=== PATIENT | male | born 1970 | race Caucasian/White ===

== ENCOUNTER 2018-06-13 19:28 | Inpatient (IN) | payer MEDICAID ==
[~2018-06-13] VITALS: Ht 175.3 cm; Wt 80.1 kg
[~2018-06-13 19:28] MED LIST: RISP2 PO; SERT100T12 PO
[2018-06-13] MEDS ORDERED: ZOLPIDEM TARTRATE 10 MG TABLET PO PRN (20:00)
[2018-06-13] MEDS ORDERED: LORazepam 2 MG TABLET PO PRN (20:00)
[2018-06-13] MEDS ORDERED: HALOPERIDOL 5 MG TABLET PO PRN (20:00)
[2018-06-13 20:29] VITALS: BP 118/69
[2018-06-13] MEDS ORDERED: ACETAMINOPHEN 325 MG TABLET PO PRN (21:00)
[2018-06-13] MEDS ORDERED: DOCUSATE SODIUM 100 MG CAPSULE PO PRN (21:00)
[2018-06-13] MEDS ORDERED: MAG HYDROX/AL HYDROX/SIMETH ES 30 ML SUSPENSION UDCUP PO PRN (21:00)
[2018-06-13] MEDS ORDERED: NICOTINE 14 MG/24 HOUR PATCH TD PRN (21:00)
[2018-06-13] MEDS ORDERED: CloNIDine HCL 0.1 MG TABLET PO PRN (21:00)
[2018-06-13] MEDS ORDERED: MAGNESIUM HYDROXIDE SUSPENSION 30 ML UDCUP PO PRN (21:00)
[2018-06-13] MEDS ORDERED: LOPERAMIDE HCL 2 MG CAPSULE PO PRN (21:00)
[2018-06-13] MEDS ORDERED: IBUPROFEN 400 MG TABLET PO PRN (21:00)
[2018-06-13] MEDS ORDERED: ONDANSETRON HCL 4 MG TABLET PO PRN (21:00)
[2018-06-13] MEDS ORDERED: PETROLATUM,WHITE 28 GM JELLY TP PRN (21:00)
[2018-06-13] MEDS ORDERED: PNEUMOCOCCAL VACCINE POLYVALENT 0.5 ML VIAL [PPSV23] IM ONE (21:00)
[2018-06-13] MEDS ORDERED: ALBUTEROL SULFATE HFA 90 MCG/PUFF 8 GM INHALER IH PRN (21:00)
[2018-06-13 21:04] VITALS: BP 122/77
[2018-06-14 00:14] VITALS: BP 118/72
[2018-06-14 08:29] LABS: BASOPHILS % (AUTO) 0.4 % (0.0-2.0); EOSINOPHILS % (AUTO) 4.6 % (1.0-6.0); HEMOGLOBIN 14.3 g/dL (13.5-17.5); LYMPHOCYTES # (AUTO) 1.9 K/uL (1.0-4.8); LYMPHOCYTES % (AUTO) 30.4 % (22.0-44.0); MEAN CORPUSCULAR HEMOGLOBIN 27.7 pg (26.0-34.0); MEAN CORPUSCULAR HGB CONC 32.6 G/dL (31.0-37.0); MEAN CORPUSCULAR VOLUME 85 fL (80-100); MONOCYTES # (AUTO) 0.4 K/uL (0.1-1.0); MONOCYTES % (AUTO) 6.6 % (2.0-9.0); NEUTROPHILS # (AUTO) 3.6 K/uL (1.8-7.7); PLATELET COUNT (AUTO) 254 K/uL (150-450); RED BLOOD CELL COUNT(AUTO) 5.17 MIL/uL (4.50-5.90); RED CELL DISTRIBUTION WIDTH 14.1 % (11.5-14.5)
[2018-06-14 08:55] LABS: ALANINE AMINOTRANSFERASE 43 U/L (12-78); ALBUMIN 3.7 g/dL (3.4-5.0); ALKALINE PHOSPHATASE 73 U/L (46-116); ANION GAP 5 mmol/L (8-16); ASPARTATE AMINOTRANSFERASE 16 U/L (15-37); BILIRUBIN,TOTAL 1.1 mg/dL (0.1-1.0); CALCIUM, TOTAL 9.2 mg/dL (8.8-10.5); CARBON DIOXIDE 31 mmol/L (22-29); CHLORIDE 104 mmol/L (98-107); CHOL/HDL RATIO 3.8 (4.2-7.3); CHOLESTEROL 255 mg/dL (131-200); CREATININE 0.97 mg/dL (0.60-1.30); FREE T4 (FREE THYROXINE) 0.72 ng/dL (0.76-1.46); GLOMERULAR FILTR. RATE CALC > 60 mL/min (>60); GLUCOSE,RANDOM 79 mg/dL (70-110); HDL CHOLESTEROL 68 mg/dL (40-60); LDL CHOL (CALC.) 164 mg/dL (0-130); POTASSIUM 4.4 mmol/L (3.5-5.1); SODIUM SERUM 140 mmol/L (136-145); THYROID STIMULATING HORMONE 1.74 uIU/mL (0.36-3.74); TOTAL PROTEIN, SERUM 6.9 g/dL (6.4-8.2); TRIGLYCERIDES 113 mg/dL (15-150); UREA NITROGEN, BLOOD 17 mg/dL (7-18)
[2018-06-14 09:00] VITALS: BP 134/88
[2018-06-14] MEDS: SERTRALINE HCL 100 MG TABLET PO SCH ×2 (09:00→12:58)
[2018-06-14 09:04] LABS: HEMOGLOBIN A1C 5.3 % (4.5-6.2)
[2018-06-14 16:31] VITALS: BP 118/76
[2018-06-14] MEDS: RisperiDONE 2 MG TABLET PO SCH (20:56)
[2018-06-15 06:00] VITALS: BP 104/61
[2018-06-15] MEDS: LEVOTHYROXINE SODIUM 25 MCG TABLET PO SCH (06:45)
[2018-06-15 08:30] VITALS: BP 104/67
[2018-06-15 16:15] VITALS: BP 116/67
[2018-06-15] MEDS: RisperiDONE 2 MG TABLET PO SCH (20:16)
[2018-06-16 00:08] VITALS: BP 119/67
[2018-06-16] MEDS: GuaiFENesin/D-METHORPHAN [SUGAR-FREE] 200-20MG/10 ML SYRUP UDCUP PO PRN ×2 (02:50→20:58)
[2018-06-16] MEDS: LEVOTHYROXINE SODIUM 25 MCG TABLET PO SCH (07:01)
[2018-06-16] MEDS: SERTRALINE HCL 100 MG TABLET PO SCH (08:11)
[2018-06-16 08:18] VITALS: BP 124/62
[2018-06-16 16:06] VITALS: BP 115/63
[2018-06-16] MEDS: RisperiDONE 2 MG TABLET PO SCH (20:33)
[2018-06-17 01:00] VITALS: BP 109/62
[2018-06-17] MEDS: LEVOTHYROXINE SODIUM 25 MCG TABLET PO SCH (06:35)
[2018-06-17 08:20] VITALS: BP 108/65
[2018-06-17] MEDS: SERTRALINE HCL 100 MG TABLET PO SCH (08:54)
[2018-06-17 16:16] VITALS: BP 114/68
[2018-06-17] MEDS: RisperiDONE 2 MG TABLET PO SCH (20:32)
[2018-06-17] MEDS: GuaiFENesin/D-METHORPHAN [SUGAR-FREE] 200-20MG/10 ML SYRUP UDCUP PO PRN (20:51)
[2018-06-18 00:45] VITALS: BP 109/69
[2018-06-18] MEDS: LEVOTHYROXINE SODIUM 25 MCG TABLET PO SCH (06:36)
[2018-06-18] MEDS: SERTRALINE HCL 100 MG TABLET PO SCH (08:03)
[2018-06-18 08:15] VITALS: BP 106/64
[2018-06-18 16:00] VITALS: BP 108/60
[2018-06-18] MEDS: RisperiDONE 2 MG TABLET PO SCH (20:37)
[2018-06-19 06:20] VITALS: BP 129/87
[2018-06-19] MEDS: LEVOTHYROXINE SODIUM 25 MCG TABLET PO SCH (06:36)
[2018-06-19] MEDS: SERTRALINE HCL 100 MG TABLET PO SCH (08:44)
[2018-06-19 08:57] VITALS: BP 105/66
[2018-06-19 16:18] VITALS: BP 111/71
[2018-06-19] MEDS: RisperiDONE 2 MG TABLET PO SCH (20:11)
[2018-06-20] MEDS: GuaiFENesin/D-METHORPHAN [SUGAR-FREE] 200-20MG/10 ML SYRUP UDCUP PO PRN ×2 (00:29→22:15)
[2018-06-20] MEDS: LEVOTHYROXINE SODIUM 25 MCG TABLET PO SCH (05:47)
[2018-06-20 06:39] VITALS: BP 108/72
[2018-06-20 08:26] VITALS: BP 110/57
[2018-06-20 11:44] VITALS: BP 112/65
[2018-06-20] MEDS: SERTRALINE HCL 100 MG TABLET PO SCH (12:17)
[2018-06-20 16:27] VITALS: BP 110/71
[2018-06-20] MEDS: RisperiDONE 2 MG TABLET PO SCH (20:33)
[2018-06-21 00:25] VITALS: BP 112/68
[2018-06-21] MEDS: LEVOTHYROXINE SODIUM 25 MCG TABLET PO SCH (06:46)
[2018-06-21 08:19] VITALS: BP 115/69
[2018-06-21] MEDS: AZITHROMYCIN 250 MG TABLET PO SCH (08:57)
[2018-06-21] MEDS: SERTRALINE HCL 100 MG TABLET PO SCH (08:57)
[2018-06-21 16:43] VITALS: BP 111/65
[2018-06-21] MEDS: RisperiDONE 2 MG TABLET PO SCH (20:29)
[2018-06-22 00:23] VITALS: BP 110/72
[2018-06-22] MEDS: LEVOTHYROXINE SODIUM 25 MCG TABLET PO SCH (06:42)
[2018-06-22 08:24] VITALS: BP 107/63
[2018-06-22] MEDS: SERTRALINE HCL 100 MG TABLET PO SCH (08:35)
[2018-06-22] MEDS: AZITHROMYCIN 250 MG TABLET PO SCH (08:36)
[2018-06-22 16:40] VITALS: BP 114/75
[2018-06-22] MEDS: RisperiDONE 2 MG TABLET PO SCH (20:45)
[2018-06-23] MEDS: LEVOTHYROXINE SODIUM 25 MCG TABLET PO SCH (06:24)
[2018-06-23 07:11] VITALS: BP 110/68
[2018-06-23 09:33] VITALS: BP 110/62
[2018-06-23] MEDS: AZITHROMYCIN 250 MG TABLET PO SCH (09:47)
[2018-06-23] MEDS: SERTRALINE HCL 100 MG TABLET PO SCH (09:47)
[2018-06-23] MEDS: RisperiDONE 1 MG TABLET PO SCH (11:15)
[2018-06-23 16:27] VITALS: BP 112/54
[2018-06-23] MEDS: RisperiDONE 2 MG TABLET PO SCH (20:15)
[2018-06-24] MEDS: LEVOTHYROXINE SODIUM 25 MCG TABLET PO SCH (06:27)
[2018-06-24 09:14] VITALS: BP 102/60
[2018-06-24] MEDS: RisperiDONE 1 MG TABLET PO SCH (09:45)
[2018-06-24] MEDS: SERTRALINE HCL 100 MG TABLET PO SCH (09:46)
[2018-06-24] MEDS: AZITHROMYCIN 250 MG TABLET PO SCH (09:46)
[2018-06-24 17:44] VITALS: BP 113/71
[2018-06-24] MEDS: RisperiDONE 2 MG TABLET PO SCH (20:10)
[2018-06-25 03:12] VITALS: BP 104/58
[2018-06-25] MEDS: LEVOTHYROXINE SODIUM 25 MCG TABLET PO SCH (06:57)
[2018-06-25 08:00] VITALS: BP 100/67
[2018-06-25] MEDS: AZITHROMYCIN 250 MG TABLET PO SCH (09:38)
[2018-06-25] MEDS: SERTRALINE HCL 100 MG TABLET PO SCH (09:38)
[2018-06-25] MEDS: RisperiDONE 1 MG TABLET PO SCH (09:38)
[2018-06-25 16:13] VITALS: BP 122/72
[2018-06-25] MEDS: RisperiDONE 2 MG TABLET PO SCH (20:36)
[2018-06-26 06:28] VITALS: BP 116/67
[2018-06-26] MEDS: LEVOTHYROXINE SODIUM 25 MCG TABLET PO SCH (07:01)
[2018-06-26] MEDS: RisperiDONE 1 MG TABLET PO SCH (08:31)
[2018-06-26] MEDS: SERTRALINE HCL 100 MG TABLET PO SCH (08:31)
[2018-06-26 08:53] VITALS: BP 103/61
[2018-06-26 16:19] VITALS: BP 114/72
[2018-06-26] MEDS: RisperiDONE 2 MG TABLET PO SCH (21:11)
[2018-06-27 01:30] VITALS: BP 113/68
[2018-06-27] MEDS: LEVOTHYROXINE SODIUM 25 MCG TABLET PO SCH (06:54)
[2018-06-27 08:00] VITALS: BP 104/60
[2018-06-27] MEDS: RisperiDONE 1 MG TABLET PO SCH (08:50)
[2018-06-27] MEDS: SERTRALINE HCL 100 MG TABLET PO SCH (08:51)
[2018-06-27 16:31] VITALS: BP 111/66
[2018-06-27] MEDS: RisperiDONE 2 MG TABLET PO SCH (20:34)
[2018-06-28 00:42] VITALS: BP 112/69
[2018-06-28] MEDS: LEVOTHYROXINE SODIUM 25 MCG TABLET PO SCH (06:59)
[2018-06-28 08:29] VITALS: BP 104/60
[2018-06-28] MEDS: SERTRALINE HCL 100 MG TABLET PO SCH (08:29)
[2018-06-28] MEDS: RisperiDONE 1 MG TABLET PO SCH (08:29)
[2018-06-28 16:17] VITALS: BP 115/71
[2018-06-28] MEDS: RisperiDONE 2 MG TABLET PO SCH (20:18)
[2018-06-29 03:27] VITALS: BP 91/58
[2018-06-29] MEDS: LEVOTHYROXINE SODIUM 25 MCG TABLET PO SCH (07:20)
[2018-06-29 08:10] VITALS: BP 110/67
[2018-06-29] MEDS: RisperiDONE 1 MG TABLET PO SCH (09:06)
[2018-06-29] MEDS: SERTRALINE HCL 100 MG TABLET PO SCH (09:06)
[2018-06-29 16:40] VITALS: BP 119/73
[2018-06-29] MEDS: RisperiDONE 2 MG TABLET PO SCH (20:05)
[2018-06-30 00:07] VITALS: BP 107/64
[2018-06-30] MEDS: LEVOTHYROXINE SODIUM 25 MCG TABLET PO SCH (06:51)
[2018-06-30 08:09] VITALS: BP 105/59
[2018-06-30] MEDS: RisperiDONE 1 MG TABLET PO SCH (08:44)
[2018-06-30] MEDS: SERTRALINE HCL 100 MG TABLET PO SCH (08:44)
[2018-06-30 16:11] VITALS: BP 105/63
[2018-06-30] MEDS: RisperiDONE 2 MG TABLET PO SCH (20:07)
[2018-07-01 03:08] VITALS: BP 115/68
[2018-07-01] MEDS: LEVOTHYROXINE SODIUM 25 MCG TABLET PO SCH (06:51)
[2018-07-01 08:00] VITALS: BP 113/67
[2018-07-01] MEDS: SERTRALINE HCL 100 MG TABLET PO SCH (08:22)
[2018-07-01] MEDS: RisperiDONE 2 MG TABLET PO SCH ×2 (08:22→20:18)
[2018-07-01 16:11] VITALS: BP 113/67
[2018-07-02 01:13] VITALS: BP 113/62
[2018-07-02] MEDS: LEVOTHYROXINE SODIUM 25 MCG TABLET PO SCH (06:56)
[2018-07-02] MEDS: SERTRALINE HCL 100 MG TABLET PO SCH (08:29)
[2018-07-02] MEDS: RisperiDONE 2 MG TABLET PO SCH (08:29)
[2018-07-02 08:39] VITALS: BP 108/82
[2018-07-02] MEDS ORDERED: RISP2 PO ×2 (11:50→12:36)
[2018-07-02] MEDS ORDERED: SERT100T12 PO ×2 (11:50→12:36)
[2018-07-02] MEDS ORDERED: LEVO25TA9 PO (12:36)
== END 2018-07-02 13:00 | disposition home or self-care (01) | DRG 751 ==
LOC: B2S 19:58
DX: F33.3 Major depressive disorder, recurrent, severe with psychotic symptoms (principal); R45.851 Suicidal ideations; E03.9 Hypothyroidism, unspecified; E78.5 Hyperlipidemia, unspecified; F10.10 Alcohol abuse, uncomplicated; G89.29 Other chronic pain; M25.561 Pain in right knee; M25.562 Pain in left knee; M54.9 Dorsalgia, unspecified; F99 Mental disorder, not otherwise specified; F19.10 Other psychoactive substance abuse, uncomplicated; Z59.0 Homelessness; Z79.899 Other long term (current) drug therapy
CPT/HCPCS: 83036; 84439; 84443; 87070; 87081; 87205

== ENCOUNTER 2018-07-17 11:46 | Inpatient (IN) | payer MEDICAID ==
[~2018-07-17] VITALS: Ht 175.3 cm; Wt 83.3 kg
[~2018-07-17 11:46] MED LIST changes: +LEVO25TA9 PO
[2018-07-17 14:23] LABS: AMPHET/METH SCREEN,URINE NEGATIVE (NEGATIVE); BARBITURATE SCREEN, URINE NEGATIVE (NEGATIVE); BENZODIAZEPINES SCREEN,URINE NEGATIVE (NEGATIVE); CANNABINOID SCREEN,URINE NEGATIVE (NEGATIVE); COCAINE SCREEN,URINE NEGATIVE (NEGATIVE); METHADONE SCREEN, URINE NEGATIVE (NEGATIVE); OPIATE SCREEN,URINE NEGATIVE (NEGATIVE); PHENCYCLIDINE SCREEN,URINE NEGATIVE (NEGATIVE)
[2018-07-17 14:24] LABS: ANION GAP 9 mmol/L (8-16); CARBON DIOXIDE 27 mmol/L (22-29); CHLORIDE 103 mmol/L (98-107); CREATININE 0.94 mg/dL (0.60-1.30); GLOMERULAR FILTR. RATE CALC > 60 mL/min (>60); GLUCOSE,RANDOM 95 mg/dL (70-110); POTASSIUM 4.3 mmol/L (3.5-5.1); SODIUM SERUM 139 mmol/L (136-145); UREA NITROGEN, BLOOD 23 mg/dL (7-18)
[2018-07-17 14:26] LABS: BASOPHILS % (AUTO) 0.6 % (0.0-2.0); EOSINOPHILS % (AUTO) 6.4 % (1.0-6.0); HEMATOCRIT 41.9 % (41-53); HEMOGLOBIN 13.8 g/dL (13.5-17.5); LYMPHOCYTES # (AUTO) 1.4 K/uL (1.0-4.8); LYMPHOCYTES % (AUTO) 19.8 % (22.0-44.0); MEAN CORPUSCULAR HEMOGLOBIN 27.6 pg (26.0-34.0); MEAN CORPUSCULAR HGB CONC 32.8 G/dL (31.0-37.0); MEAN CORPUSCULAR VOLUME 84 fL (80-100); MONOCYTES # (AUTO) 0.5 K/uL (0.1-1.0); MONOCYTES % (AUTO) 7.2 % (2.0-9.0); NEUTROPHILS # (AUTO) 4.7 K/uL (1.8-7.7); PLATELET COUNT (AUTO) 216 K/uL (150-450); RED BLOOD CELL COUNT(AUTO) 4.98 MIL/uL (4.50-5.90); RED CELL DISTRIBUTION WIDTH 13.5 % (11.5-14.5)
[2018-07-17 14:30] LABS: ALANINE AMINOTRANSFERASE 41 U/L (12-78); ALBUMIN 3.7 g/dL (3.4-5.0); ALKALINE PHOSPHATASE 67 U/L (46-116); ASPARTATE AMINOTRANSFERASE 24 U/L (15-37); BILIRUBIN,TOTAL 0.5 mg/dL (0.1-1.0); TOTAL PROTEIN, SERUM 7.4 g/dL (6.4-8.2)
[2018-07-17] MEDS ORDERED: HALOPERIDOL 5 MG TABLET PO PRN (15:00)
[2018-07-17] MEDS ORDERED: LORazepam 2 MG TABLET PO PRN (15:00)
[2018-07-17] MEDS ORDERED: ZOLPIDEM TARTRATE 10 MG TABLET PO PRN (15:00)
[2018-07-17 18:20] VITALS: BP 124/73
[2018-07-17] MEDS ORDERED: GuaiFENesin/D-METHORPHAN [SUGAR-FREE] 200-20MG/10 ML SYRUP UDCUP PO PRN (19:00)
[2018-07-17] MEDS ORDERED: IBUPROFEN 400 MG TABLET PO PRN (19:00)
[2018-07-17] MEDS ORDERED: NICOTINE 14 MG/24 HOUR PATCH TD PRN (19:00)
[2018-07-17] MEDS ORDERED: ACETAMINOPHEN 325 MG TABLET PO PRN (19:00)
[2018-07-17] MEDS ORDERED: CloNIDine HCL 0.1 MG TABLET PO PRN (19:00)
[2018-07-17] MEDS ORDERED: ALBUTEROL SULFATE HFA 90 MCG/PUFF 8 GM INHALER IH PRN (19:00)
[2018-07-17] MEDS ORDERED: MAGNESIUM HYDROXIDE SUSPENSION 30 ML UDCUP PO PRN (19:00)
[2018-07-17] MEDS ORDERED: MAG HYDROX/AL HYDROX/SIMETH ES 30 ML SUSPENSION UDCUP PO PRN (19:00)
[2018-07-17] MEDS ORDERED: ONDANSETRON HCL 4 MG TABLET PO PRN (19:00)
[2018-07-17] MEDS ORDERED: DOCUSATE SODIUM 100 MG CAPSULE PO PRN (19:00)
[2018-07-17] MEDS ORDERED: LOPERAMIDE HCL 2 MG CAPSULE PO PRN (19:00)
[2018-07-17] MEDS ORDERED: PETROLATUM,WHITE 28 GM JELLY TP PRN (19:00)
[2018-07-18 00:06] VITALS: BP 120/67
[2018-07-18] MEDS: LEVOTHYROXINE SODIUM 25 MCG TABLET PO SCH (08:23)
[2018-07-18 08:27] LABS: BASOPHILS % (AUTO) 0.6 % (0.0-2.0); EOSINOPHILS % (AUTO) 9.2 % (1.0-6.0); HEMATOCRIT 44.7 % (41-53); HEMOGLOBIN 14.4 g/dL (13.5-17.5); LYMPHOCYTES # (AUTO) 1.7 K/uL (1.0-4.8); LYMPHOCYTES % (AUTO) 27.3 % (22.0-44.0); MEAN CORPUSCULAR HEMOGLOBIN 27.2 pg (26.0-34.0); MEAN CORPUSCULAR HGB CONC 32.2 G/dL (31.0-37.0); MEAN CORPUSCULAR VOLUME 85 fL (80-100); MONOCYTES # (AUTO) 0.5 K/uL (0.1-1.0); MONOCYTES % (AUTO) 8.4 % (2.0-9.0); NEUTROPHILS # (AUTO) 3.4 K/uL (1.8-7.7); NEUTROPHILS % (AUTO) 54.5 % (40.0-70.0); PLATELET COUNT (AUTO) 203 K/uL (150-450); RED BLOOD CELL COUNT(AUTO) 5.29 MIL/uL (4.50-5.90); RED CELL DISTRIBUTION WIDTH 13.8 % (11.5-14.5)
[2018-07-18 08:34] VITALS: BP 118/68
[2018-07-18 09:03] LABS: ALANINE AMINOTRANSFERASE 39 U/L (12-78); ALBUMIN 3.7 g/dL (3.4-5.0); ALKALINE PHOSPHATASE 67 U/L (46-116); ANION GAP 6 mmol/L (8-16); ASPARTATE AMINOTRANSFERASE 21 U/L (15-37); BILIRUBIN,TOTAL 0.7 mg/dL (0.1-1.0); CALCIUM, TOTAL 9.4 mg/dL (8.8-10.5); CARBON DIOXIDE 33 mmol/L (22-29); CHLORIDE 103 mmol/L (98-107); CHOL/HDL RATIO 4.2 (4.2-7.3); CHOLESTEROL 254 mg/dL (131-200); CREATININE 1.17 mg/dL (0.60-1.30); GLOMERULAR FILTR. RATE CALC > 60 mL/min (>60); GLUCOSE,RANDOM 74 mg/dL (70-110); HDL CHOLESTEROL 60 mg/dL (40-60); LDL CHOL (CALC.) 164 mg/dL (0-130); SODIUM SERUM 142 mmol/L (136-145); THYROID STIMULATING HORMONE 1.29 uIU/mL (0.36-3.74); TOTAL PROTEIN, SERUM 7.1 g/dL (6.4-8.2); TRIGLYCERIDES 151 mg/dL (15-150); UREA NITROGEN, BLOOD 21 mg/dL (7-18)
[2018-07-18 09:22] LABS: HEMOGLOBIN A1C 5.7 % (4.5-6.2)
[2018-07-18] MEDS: RisperiDONE 2 MG TABLET PO SCH ×2 (14:21→20:39)
[2018-07-18] MEDS: SERTRALINE HCL 100 MG TABLET PO SCH (14:23)
[2018-07-18 16:41] VITALS: BP 100/65
[2018-07-19 05:51] VITALS: BP 132/61
[2018-07-19] MEDS: LEVOTHYROXINE SODIUM 25 MCG TABLET PO SCH (07:16)
[2018-07-19 08:00] VITALS: BP 107/56
[2018-07-19] MEDS: SERTRALINE HCL 100 MG TABLET PO SCH (08:38)
[2018-07-19] MEDS: RisperiDONE 2 MG TABLET PO SCH ×2 (08:38→20:29)
[2018-07-19 16:18] VITALS: BP 123/79
[2018-07-20 00:19] VITALS: BP 105/62
[2018-07-20] MEDS: LEVOTHYROXINE SODIUM 25 MCG TABLET PO SCH (06:41)
[2018-07-20 09:02] VITALS: BP 114/65
[2018-07-20] MEDS: RisperiDONE 2 MG TABLET PO SCH ×2 (09:15→20:56)
[2018-07-20] MEDS: SERTRALINE HCL 100 MG TABLET PO SCH (09:15)
[2018-07-20 16:24] VITALS: BP 119/73
[2018-07-21 07:07] VITALS: BP 115/76
[2018-07-21] MEDS: LEVOTHYROXINE SODIUM 25 MCG TABLET PO SCH (07:30)
[2018-07-21 08:00] VITALS: BP 111/69
[2018-07-21] MEDS: SERTRALINE HCL 100 MG TABLET PO SCH (09:21)
[2018-07-21] MEDS: RisperiDONE 2 MG TABLET PO SCH ×2 (09:21→20:40)
[2018-07-21 16:30] VITALS: BP 111/70
[2018-07-22 04:57] VITALS: BP 99/64
[2018-07-22] MEDS: LEVOTHYROXINE SODIUM 25 MCG TABLET PO SCH (06:54)
[2018-07-22 08:50] VITALS: BP 121/75
[2018-07-22] MEDS: SERTRALINE HCL 100 MG TABLET PO SCH (08:50)
[2018-07-22] MEDS: RisperiDONE 2 MG TABLET PO SCH ×2 (08:50→20:25)
[2018-07-22 16:12] VITALS: BP 118/72
[2018-07-23 00:14] VITALS: BP 112/76
[2018-07-23] MEDS: LEVOTHYROXINE SODIUM 25 MCG TABLET PO SCH (06:50)
[2018-07-23 08:31] LABS: AMPHET/METH SCREEN,URINE NEGATIVE (NEGATIVE); BARBITURATE SCREEN, URINE NEGATIVE (NEGATIVE); BENZODIAZEPINES SCREEN,URINE NEGATIVE (NEGATIVE); COCAINE SCREEN,URINE NEGATIVE (NEGATIVE); METHADONE SCREEN, URINE NEGATIVE (NEGATIVE); OPIATE SCREEN,URINE NEGATIVE (NEGATIVE)
[2018-07-23] MEDS: RisperiDONE 2 MG TABLET PO SCH ×2 (08:55→20:08)
[2018-07-23] MEDS: SERTRALINE HCL 100 MG TABLET PO SCH (08:55)
[2018-07-23 09:38] VITALS: BP 111/60
[2018-07-23 09:45] LABS: APPEARANCE,URINE CLEAR (CLEAR); BILIRUBIN,URINE NEGATIVE (NEGATIVE); GLUCOSE, URINE (UA) NEGATIVE (NEGATIVE); KETONES,URINE NEGATIVE (NEGATIVE); LEUKOCYTE ESTERASE ,URINE NEGATIVE (NEGATIVE); NITRATE,URINE NEGATIVE (NEGATIVE); OCCULT BLOOD,URINE NEGATIVE (NEGATIVE); PH,URINE 7.5 (5.0-8.0); PROTEIN,URINE NEGATIVE (NEGATIVE); UROBILINOGEN,URINE 0.2 mg/dL (<=1.0)
[2018-07-23 09:47] LABS: CANNABINOID SCREEN,URINE NEGATIVE (NEGATIVE)
[2018-07-23 09:50] LABS: PHENCYCLIDINE SCREEN,URINE NEGATIVE (NEGATIVE)
[2018-07-23 16:49] VITALS: BP 122/85
[2018-07-24 00:30] VITALS: BP 107/72
[2018-07-24] MEDS: LEVOTHYROXINE SODIUM 25 MCG TABLET PO SCH (06:42)
[2018-07-24] MEDS: SERTRALINE HCL 100 MG TABLET PO SCH (09:13)
[2018-07-24] MEDS: RisperiDONE 2 MG TABLET PO SCH ×2 (09:14→21:25)
[2018-07-24 09:21] VITALS: BP 117/70
[2018-07-24 16:19] VITALS: BP 124/74
[2018-07-25 05:28] VITALS: BP 122/72
[2018-07-25] MEDS: LEVOTHYROXINE SODIUM 25 MCG TABLET PO SCH (06:42)
[2018-07-25 08:00] VITALS: BP 104/66
[2018-07-25] MEDS: SERTRALINE HCL 100 MG TABLET PO SCH (09:07)
[2018-07-25] MEDS: RisperiDONE 2 MG TABLET PO SCH ×2 (09:07→20:43)
[2018-07-25 16:08] VITALS: BP 109/72
[2018-07-26 06:18] VITALS: BP 111/67
[2018-07-26] MEDS: LEVOTHYROXINE SODIUM 25 MCG TABLET PO SCH (06:35)
[2018-07-26 08:21] VITALS: BP 118/69
[2018-07-26] MEDS: SERTRALINE HCL 100 MG TABLET PO SCH (09:02)
[2018-07-26] MEDS: RisperiDONE 2 MG TABLET PO SCH ×2 (09:02→20:29)
[2018-07-26 16:14] VITALS: BP 118/62
[2018-07-27 01:40] VITALS: BP 112/68
[2018-07-27] MEDS: LEVOTHYROXINE SODIUM 25 MCG TABLET PO SCH (07:14)
[2018-07-27 08:00] VITALS: BP 115/71
[2018-07-27] MEDS: SERTRALINE HCL 100 MG TABLET PO SCH (08:48)
[2018-07-27] MEDS: RisperiDONE 2 MG TABLET PO SCH (08:48)
[2018-07-27] MEDS ORDERED: SERT100T12 PO ×2 (11:27→12:40)
[2018-07-27] MEDS ORDERED: RISP2 PO ×2 (11:27→12:40)
== END 2018-07-27 13:40 | disposition home or self-care (01) | DRG 751 ==
LOC: EMS 11:47 → B2S 16:08 → EMS 16:52 → B2S 18:29
DX: F33.3 Major depressive disorder, recurrent, severe with psychotic symptoms (principal); R45.851 Suicidal ideations; E03.9 Hypothyroidism, unspecified; E78.5 Hyperlipidemia, unspecified; F10.10 Alcohol abuse, uncomplicated; G89.29 Other chronic pain; F19.10 Other psychoactive substance abuse, uncomplicated; F41.9 Anxiety disorder, unspecified; M54.9 Dorsalgia, unspecified; Z59.0 Homelessness; Z79.899 Other long term (current) drug therapy; Z71.41 Alcohol abuse counseling and surveillance of alcoholic; Z71.51 Drug abuse counseling and surveillance of drug abuser; Z79.890 Hormone replacement therapy
CPT/HCPCS: 80307; 83036; 84443; 87081; G0480

== ENCOUNTER 2019-03-14 19:49 | Emergency (ER) | payer MEDICAID ==
[~2019-03-14] VITALS: Ht 175.3 cm; Wt 89.5 kg
[~2019-03-14 19:49] MED LIST changes: +ATOR10TA84 PO; +LEVO50 PO
[2019-03-14 20:10] VITALS: BP 141/87
[2019-03-14] MEDS ORDERED: CEPHALEXIN MONOHYDRATE 500 MG CAPSULE PO ONE (21:30)
[2019-03-14] MEDS ORDERED: SULFAMETHOX/TRIMETH DS 800-160 MG/TABLET PO ONE (21:30)
== END 2019-03-14 21:50 | disposition home or self-care (01) ==
LOC: EMS 19:50
DX: L03.113 Cellulitis of right upper limb (principal); E03.9 Hypothyroidism, unspecified; F32.9 Major depressive disorder, single episode, unspecified; Z79.899 Other long term (current) drug therapy

== ENCOUNTER 2019-04-01 19:46 | Inpatient (IN) | payer MEDICAID ==
[~2019-04-01] VITALS: Ht 175.3 cm; Wt 89.1 kg
[~2019-04-01 19:46] MED LIST changes: -LEVO50 PO; -RISP2 PO
[2019-04-01] MEDS ORDERED: HALOPERIDOL 5 MG TABLET PO PRN (20:30)
[2019-04-01] MEDS ORDERED: LORazepam 2 MG TABLET PO PRN (20:30)
[2019-04-01] MEDS ORDERED: ZOLPIDEM TARTRATE 10 MG TABLET PO PRN (20:30)
[2019-04-01] MEDS ORDERED: INFLUENZA VIRUS VACCINE QVS 2019-20 (3YR+)/PF 60 MCG/0.5 ML SYRINGE IM ONE (20:45)
[2019-04-01 21:07] VITALS: BP 115/74
[2019-04-02 01:16] VITALS: BP 140/71
[2019-04-02] MEDS ORDERED: IBUPROFEN 400 MG TABLET PO PRN (04:50)
[2019-04-02] MEDS ORDERED: ACETAMINOPHEN 325 MG TABLET PO PRN ×2 (04:50→13:45)
[2019-04-02 04:55] VITALS: BP 121/76
[2019-04-02 07:41] LABS: BASOPHILS % (AUTO) 0.5 % (0.0-2.0); EOSINOPHILS % (AUTO) 6.7 % (1.0-6.0); HEMATOCRIT 42.6 % (41-53); HEMOGLOBIN 13.9 g/dL (13.5-17.5); LYMPHOCYTES # (AUTO) 1.5 K/uL (1.0-4.8); LYMPHOCYTES % (AUTO) 21.4 % (22.0-44.0); MEAN CORPUSCULAR HEMOGLOBIN 26.8 pg (26.0-34.0); MEAN CORPUSCULAR HGB CONC 32.6 G/dL (31.0-37.0); MEAN CORPUSCULAR VOLUME 82 fL (80-100); MONOCYTES # (AUTO) 0.5 K/uL (0.1-1.0); NEUTROPHILS # (AUTO) 4.3 K/uL (1.8-7.7); NEUTROPHILS % (AUTO) 63.4 % (40.0-70.0); PLATELET COUNT (AUTO) 229 K/uL (150-450); RED BLOOD CELL COUNT(AUTO) 5.17 MIL/uL (4.50-5.90); RED CELL DISTRIBUTION WIDTH 13.5 % (11.5-14.5)
[2019-04-02 07:52] LABS: HEMOGLOBIN A1C 5.8 % (4.5-6.2)
[2019-04-02 08:03] LABS: ALANINE AMINOTRANSFERASE 54 U/L (12-78); ALBUMIN 3.4 g/dL (3.4-5.0); ALKALINE PHOSPHATASE 87 U/L (46-116); ANION GAP 4 mmol/L (8-16); ASPARTATE AMINOTRANSFERASE 32 U/L (15-37); BILIRUBIN,TOTAL 0.6 mg/dL (0.1-1.0); CARBON DIOXIDE 29 mmol/L (22-29); CHLORIDE 103 mmol/L (98-107); CHOL/HDL RATIO 3.5 (4.2-7.3); CHOLESTEROL 178 mg/dL (131-200); CREATININE 0.99 mg/dL (0.60-1.30); FREE T4 (FREE THYROXINE) 0.74 ng/dL (0.76-1.46); GLOMERULAR FILTR. RATE CALC > 60 mL/min (>60); GLUCOSE,RANDOM 84 mg/dL (70-110); HDL CHOLESTEROL 51 mg/dL (40-60); LDL CHOL (CALC.) 96 mg/dL (0-130); POTASSIUM 4.2 mmol/L (3.5-5.1); SODIUM SERUM 136 mmol/L (136-145); THYROID STIMULATING HORMONE 0.97 uIU/mL (0.36-3.74); TOTAL PROTEIN, SERUM 6.9 g/dL (6.4-8.2); TRIGLYCERIDES 154 mg/dL (15-150); UREA NITROGEN, BLOOD 23 mg/dL (7-18)
[2019-04-02 08:35] VITALS: BP 140/84
[2019-04-02] MEDS ORDERED: DOCUSATE SODIUM 100 MG CAPSULE PO PRN (13:45)
[2019-04-02] MEDS ORDERED: ALBUTEROL SULFATE HFA 90 MCG/PUFF 8 GM INHALER IH PRN (13:45)
[2019-04-02] MEDS ORDERED: PETROLATUM,WHITE 28 GM JELLY TP PRN (13:45)
[2019-04-02] MEDS ORDERED: MAGNESIUM HYDROXIDE SUSPENSION 30 ML UDCUP PO PRN (13:45)
[2019-04-02] MEDS ORDERED: NICOTINE 14 MG/24 HOUR PATCH TD PRN (13:45)
[2019-04-02] MEDS ORDERED: CloNIDine HCL 0.1 MG TABLET PO PRN (13:45)
[2019-04-02] MEDS ORDERED: LOPERAMIDE HCL 2 MG CAPSULE PO PRN (13:45)
[2019-04-02] MEDS ORDERED: MAG HYDROX/AL HYDROX/SIMETH ES 30 ML SUSPENSION UDCUP PO PRN (13:45)
[2019-04-02] MEDS ORDERED: GuaiFENesin/D-METHORPHAN [SUGAR-FREE] 200-20MG/10 ML SYRUP UDCUP PO PRN (13:45)
[2019-04-02] MEDS ORDERED: ONDANSETRON HCL 4 MG TABLET PO PRN (13:45)
[2019-04-02 16:10] VITALS: BP 130/81
[2019-04-02] MEDS: ATORVASTATIN CALCIUM 10 MG TABLET PO SCH (20:20)
[2019-04-03] MEDS ORDERED: SERT100T12 PO (02:54)
[2019-04-03 04:09] VITALS: BP 128/70
[2019-04-03] MEDS: LEVOTHYROXINE SODIUM 25 MCG TABLET PO SCH (06:54)
[2019-04-03] MEDS: SERTRALINE HCL 100 MG TABLET PO SCH (08:28)
[2019-04-03] MEDS: IBUPROFEN 400 MG TABLET PO PRN ×2 (08:28→18:35)
[2019-04-03 08:34] VITALS: BP 138/83
[2019-04-03 08:38] LABS: AMPHET/METH SCREEN,URINE NEGATIVE (NEGATIVE); BARBITURATE SCREEN, URINE NEGATIVE (NEGATIVE); BENZODIAZEPINES SCREEN,URINE NEGATIVE (NEGATIVE); CANNABINOID SCREEN,URINE NEGATIVE (NEGATIVE); COCAINE SCREEN,URINE NEGATIVE (NEGATIVE); METHADONE SCREEN, URINE NEGATIVE (NEGATIVE); OPIATE SCREEN,URINE NEGATIVE (NEGATIVE)
[2019-04-03 08:43] LABS: PHENCYCLIDINE SCREEN,URINE NEGATIVE (NEGATIVE)
[2019-04-03 09:00] LABS: APPEARANCE,URINE CLOUDY (CLEAR); BILIRUBIN,URINE NEGATIVE (NEGATIVE); GLUCOSE, URINE (UA) NEGATIVE (NEGATIVE); KETONES,URINE NEGATIVE (NEGATIVE); LEUKOCYTE ESTERASE ,URINE NEGATIVE (NEGATIVE); NITRATE,URINE NEGATIVE (NEGATIVE); OCCULT BLOOD,URINE NEGATIVE (NEGATIVE); PH,URINE 6.5 (5.0-8.0); PROTEIN,URINE NEGATIVE (NEGATIVE)
[2019-04-03 16:27] VITALS: BP 122/60
[2019-04-03 18:36] VITALS: BP 135/78
[2019-04-03] MEDS: ATORVASTATIN CALCIUM 10 MG TABLET PO SCH (20:17)
[2019-04-04 01:02] VITALS: BP 123/80
[2019-04-04] MEDS: LEVOTHYROXINE SODIUM 25 MCG TABLET PO SCH (06:40)
[2019-04-04 08:33] VITALS: BP 140/86
[2019-04-04] MEDS: SERTRALINE HCL 100 MG TABLET PO SCH (08:56)
[2019-04-04 16:31] VITALS: BP 123/70
[2019-04-04 20:09] VITALS: BP 129/78
[2019-04-04] MEDS: IBUPROFEN 400 MG TABLET PO PRN (20:09)
[2019-04-04] MEDS: ATORVASTATIN CALCIUM 10 MG TABLET PO SCH (20:36)
[2019-04-05] MEDS: LEVOTHYROXINE SODIUM 25 MCG TABLET PO SCH (07:14)
[2019-04-05] MEDS: SERTRALINE HCL 100 MG TABLET PO SCH (08:42)
[2019-04-05 08:43] VITALS: BP 132/77
[2019-04-05] MEDS: IBUPROFEN 400 MG TABLET PO PRN (08:45)
[2019-04-05 18:53] VITALS: BP 127/87
[2019-04-05] MEDS: ATORVASTATIN CALCIUM 10 MG TABLET PO SCH (20:17)
[2019-04-06 00:01] VITALS: BP 104/73
[2019-04-06] MEDS: IBUPROFEN 400 MG TABLET PO PRN ×3 (00:02→20:08)
[2019-04-06 00:21] VITALS: BP 104/73
[2019-04-06] MEDS: LEVOTHYROXINE SODIUM 25 MCG TABLET PO SCH (06:27)
[2019-04-06] MEDS: SERTRALINE HCL 100 MG TABLET PO SCH (08:09)
[2019-04-06 08:23] VITALS: BP 131/76
[2019-04-06 16:57] VITALS: BP 135/86
[2019-04-06] MEDS: ATORVASTATIN CALCIUM 10 MG TABLET PO SCH (20:08)
[2019-04-07 02:32] VITALS: BP 112/74
[2019-04-07 06:15] VITALS: BP 134/79
[2019-04-07] MEDS: IBUPROFEN 400 MG TABLET PO PRN (06:22)
[2019-04-07] MEDS: LEVOTHYROXINE SODIUM 25 MCG TABLET PO SCH (07:05)
[2019-04-07] MEDS: SERTRALINE HCL 100 MG TABLET PO SCH (08:06)
[2019-04-07 08:11] VITALS: BP 139/83
[2019-04-07] MEDS ORDERED: TraMADol HCL 50 MG TABLET PO PRN (09:30)
[2019-04-07] MEDS ORDERED: IBUPROFEN 600 MG TABLET PO PRN (13:45)
[2019-04-07 16:01] VITALS: BP 138/74
[2019-04-07] MEDS: IBUPROFEN 600 MG TABLET PO PRN (20:01)
[2019-04-07] MEDS: ATORVASTATIN CALCIUM 10 MG TABLET PO SCH (20:01)
[2019-04-08] VITALS: BP 119/70
[2019-04-08] MEDS: IBUPROFEN 600 MG TABLET PO PRN ×2 (04:32→14:20)
[2019-04-08] MEDS: LEVOTHYROXINE SODIUM 25 MCG TABLET PO SCH (06:36)
[2019-04-08 08:14] VITALS: BP 137/79
[2019-04-08] MEDS: SERTRALINE HCL 100 MG TABLET PO SCH (08:27)
[2019-04-08 16:12] VITALS: BP 145/85
[2019-04-08] MEDS: ATORVASTATIN CALCIUM 10 MG TABLET PO SCH (20:33)
[2019-04-09] MEDS: IBUPROFEN 600 MG TABLET PO PRN (00:13)
[2019-04-09 00:34] VITALS: BP 114/64
[2019-04-09] MEDS: LEVOTHYROXINE SODIUM 25 MCG TABLET PO SCH (06:44)
[2019-04-09] MEDS: SERTRALINE HCL 100 MG TABLET PO SCH (08:30)
[2019-04-09 08:33] VITALS: BP 140/77
[2019-04-09 16:08] VITALS: BP 130/79
[2019-04-09] MEDS: ATORVASTATIN CALCIUM 10 MG TABLET PO SCH (20:28)
[2019-04-10 00:45] VITALS: BP 128/81
[2019-04-10] MEDS: IBUPROFEN 600 MG TABLET PO PRN (04:10)
[2019-04-10 04:19] VITALS: BP 125/80
[2019-04-10] MEDS: LEVOTHYROXINE SODIUM 25 MCG TABLET PO SCH (06:38)
[2019-04-10 08:11] VITALS: BP 129/79
[2019-04-10] MEDS: SERTRALINE HCL 100 MG TABLET PO SCH (08:24)
[2019-04-10 16:10] VITALS: BP 132/84
[2019-04-10] MEDS: ATORVASTATIN CALCIUM 10 MG TABLET PO SCH (19:59)
[2019-04-10] MEDS: QUEtiapine FUMARATE 100 MG TABLET PO SCH (21:00)
[2019-04-11 02:06] VITALS: BP 122/69
[2019-04-11] MEDS: LEVOTHYROXINE SODIUM 25 MCG TABLET PO SCH (06:40)
[2019-04-11 08:55] VITALS: BP 136/79
[2019-04-11] MEDS: SERTRALINE HCL 100 MG TABLET PO SCH (09:39)
[2019-04-11 16:10] VITALS: BP 144/93
[2019-04-11] MEDS: ATORVASTATIN CALCIUM 10 MG TABLET PO SCH (20:37)
[2019-04-11] MEDS: QUEtiapine FUMARATE 100 MG TABLET PO SCH (20:37)
[2019-04-12 01:27] VITALS: BP 136/79
[2019-04-12] MEDS: IBUPROFEN 600 MG TABLET PO PRN (01:57)
[2019-04-12 01:58] VITALS: BP 111/74
[2019-04-12] MEDS: LEVOTHYROXINE SODIUM 25 MCG TABLET PO SCH (07:13)
[2019-04-12] MEDS: SERTRALINE HCL 100 MG TABLET PO SCH (08:24)
[2019-04-12 08:41] VITALS: BP 128/82
[2019-04-12] MEDS ORDERED: QUET50TA PO (14:43)
[2019-04-12 16:19] VITALS: BP 130/81
== END 2019-04-12 17:38 | disposition home or self-care (01) | DRG 754 ==
LOC: B2S 20:23
PROVIDERS: ADMIT Psychiatry & Neurology Psychiatry; ATTEND Psychiatry & Neurology Psychiatry
DX: F32.9 Major depressive disorder, single episode, unspecified (principal); R45.851 Suicidal ideations; F22 Delusional disorders; E78.5 Hyperlipidemia, unspecified; E03.9 Hypothyroidism, unspecified; M54.9 Dorsalgia, unspecified; F19.90 Other psychoactive substance use, unspecified, uncomplicated; Z72.89 Other problems related to lifestyle; Z28.21 Immunization not carried out because of patient refusal; Z71.51 Drug abuse counseling and surveillance of drug abuser; Z59.0 Homelessness
CPT/HCPCS: 80307; 83036; 84439; 84443; 87081

== ENCOUNTER 2019-10-28 16:33 | Inpatient (IN) | payer MEDICAID, OTHER ==
[~2019-10-28] VITALS: Ht 175.3 cm; Wt 98.0 kg
[~2019-10-28 16:33] MED LIST changes: +QUET50TA PO
[2019-10-28 18:08] LABS: BASOPHILS % (AUTO) 0.4 % (0.0-2.0); EOSINOPHILS % (AUTO) 4.1 % (1.0-6.0); HEMATOCRIT 41.4 % (41-53); HEMOGLOBIN 13.8 g/dL (13.5-17.5); LYMPHOCYTES # (AUTO) 1.3 K/uL (1.0-4.8); MEAN CORPUSCULAR HEMOGLOBIN 27.8 pg (26.0-34.0); MEAN CORPUSCULAR HGB CONC 33.3 G/dL (31.0-37.0); MEAN CORPUSCULAR VOLUME 83 fL (80-100); MONOCYTES # (AUTO) 0.6 K/uL (0.1-1.0); MONOCYTES % (AUTO) 7.8 % (2.0-9.0); NEUTROPHILS % (AUTO) 69.7 % (40.0-70.0); PLATELET COUNT (AUTO) 236 K/uL (150-450); RED BLOOD CELL COUNT(AUTO) 4.96 MIL/uL (4.50-5.90); RED CELL DISTRIBUTION WIDTH 13.6 % (11.5-14.5)
[2019-10-28 18:26] LABS: ANION GAP 7 mmol/L (8-16); CALCIUM, TOTAL 8.9 mg/dL (8.8-10.5); CARBON DIOXIDE 27 mmol/L (22-29); CHLORIDE 104 mmol/L (98-107); CREATININE 1.12 mg/dL (0.60-1.30); GLOMERULAR FILTR. RATE CALC > 60 mL/min (>60); GLUCOSE,RANDOM 108 mg/dL (70-110); POTASSIUM 4.1 mmol/L (3.5-5.1); SODIUM SERUM 138 mmol/L (136-145); UREA NITROGEN, BLOOD 22 mg/dL (7-18)
[2019-10-28 18:33] LABS: ALANINE AMINOTRANSFERASE 54 U/L (12-78); ALBUMIN 3.6 g/dL (3.4-5.0); ALKALINE PHOSPHATASE 83 U/L (46-116); ASPARTATE AMINOTRANSFERASE 31 U/L (15-37); BILIRUBIN,TOTAL 0.5 mg/dL (0.1-1.0); TOTAL PROTEIN, SERUM 7.4 g/dL (6.4-8.2)
[2019-10-28] MEDS ORDERED: MAG HYDROX/AL HYDROX/SIMETH ES 30 ML SUSPENSION UDCUP PO PRN (19:00)
[2019-10-28] MEDS ORDERED: TUBERCULIN, PURIFIED PROTEIN DERIVATIVE 5 TU/0.1 ML SYRINGE ID ONE (19:00)
[2019-10-28] MEDS ORDERED: PROMETHAZINE HCL 25 MG TABLET PO PRN (19:00)
[2019-10-28] MEDS ORDERED: OLANZapine 5 MG RAPDIS TABLET PO PRN (19:00)
[2019-10-28] MEDS ORDERED: HydrOXYzine PAMOATE 50 MG CAPSULE PO PRN (19:00)
[2019-10-28] MEDS ORDERED: ACETAMINOPHEN 325 MG TABLET PO PRN (19:00)
[2019-10-28] MEDS ORDERED: ZOLPIDEM TARTRATE 10 MG TABLET PO PRN (19:00)
[2019-10-28] MEDS ORDERED: LOPERAMIDE HCL 2 MG CAPSULE PO PRN (19:00)
[2019-10-28] MEDS ORDERED: GuaiFENesin/D-METHORPHAN [SUGAR-FREE] 200-20MG/10 ML SYRUP UDCUP PO PRN (19:00)
[2019-10-28] MEDS ORDERED: LORazepam 2 MG TABLET PO PRN (19:00)
[2019-10-28] MEDS ORDERED: MAGNESIUM HYDROXIDE SUSPENSION 30 ML UDCUP PO PRN (19:00)
[2019-10-28 19:54] LABS: AMPHET/METH SCREEN,URINE NEGATIVE (NEGATIVE); BARBITURATE SCREEN, URINE NEGATIVE (NEGATIVE); BENZODIAZEPINES SCREEN,URINE NEGATIVE (NEGATIVE); CANNABINOID SCREEN,URINE NEGATIVE (NEGATIVE); COCAINE SCREEN,URINE NEGATIVE (NEGATIVE); METHADONE SCREEN, URINE NEGATIVE (NEGATIVE); OPIATE SCREEN,URINE NEGATIVE (NEGATIVE)
[2019-10-28 19:57] LABS: PHENCYCLIDINE SCREEN,URINE NEGATIVE (NEGATIVE)
[2019-10-28] MEDS ORDERED: OLANZapine 5 MG RAPDIS TABLET PO SCH (21:00)
[2019-10-28] MEDS: THIAMINE 100 MG TABLET PO SCH (21:56)
[2019-10-29 08:06] VITALS: BP 141/72
[2019-10-29 08:20] LABS: HEMOGLOBIN A1C 5.6 % (3.8-5.6)
[2019-10-29] MEDS: SERTRALINE HCL 100 MG TABLET PO SCH (08:27)
[2019-10-29] MEDS: FOLIC ACID 1 MG TABLET PO SCH (08:27)
[2019-10-29] MEDS: MULTIVITAMINS WITH MINERALS, THERAPEUTIC TABLET PO SCH (08:27)
[2019-10-29] MEDS: THIAMINE 100 MG TABLET PO SCH ×2 (08:27→16:54)
[2019-10-29 08:29] LABS: CHOL/HDL RATIO 3.7 (4.2-7.3); FREE T4 (FREE THYROXINE) 0.84 ng/dL (0.76-1.46); THYROID STIMULATING HORMONE 1.36 uIU/mL (0.36-3.74)
[2019-10-29] MEDS ORDERED: QUET100T PO (12:18)
[2019-10-29] MEDS ORDERED: ATOR20TA86 PO (12:18)
[2019-10-29 16:09] VITALS: BP 127/73
[2019-10-29] MEDS: OLANZapine 10 MG RAPDIS TABLET PO SCH (21:03)
[2019-10-29] MEDS: ATORVASTATIN CALCIUM 10 MG TABLET PO SCH (21:03)
[2019-10-30 05:23] VITALS: BP 121/68
[2019-10-30] MEDS: LEVOTHYROXINE SODIUM 25 MCG TABLET PO SCH (06:42)
[2019-10-30 08:04] VITALS: BP 143/77
[2019-10-30] MEDS: FOLIC ACID 1 MG TABLET PO SCH (09:01)
[2019-10-30] MEDS: MULTIVITAMINS WITH MINERALS, THERAPEUTIC TABLET PO SCH (09:01)
[2019-10-30] MEDS: SERTRALINE HCL 100 MG TABLET PO SCH (09:02)
[2019-10-30] MEDS: THIAMINE 100 MG TABLET PO SCH ×2 (09:02→16:14)
[2019-10-30] MEDS ORDERED: SERT100T12 PO (15:24)
[2019-10-30] MEDS ORDERED: OLAN10TA22 PO (15:24)
[2019-10-30 16:11] VITALS: BP 156/77
[2019-10-30] MEDS: OLANZapine 10 MG RAPDIS TABLET PO SCH (20:36)
[2019-10-30] MEDS: ATORVASTATIN CALCIUM 10 MG TABLET PO SCH (20:36)
[2019-10-31] MEDS: LEVOTHYROXINE SODIUM 25 MCG TABLET PO SCH (06:30)
[2019-10-31 07:11] VITALS: BP 133/76
[2019-10-31] MEDS: THIAMINE 100 MG TABLET PO SCH (08:32)
[2019-10-31] MEDS: MULTIVITAMINS WITH MINERALS, THERAPEUTIC TABLET PO SCH (08:32)
[2019-10-31] MEDS: FOLIC ACID 1 MG TABLET PO SCH (08:32)
[2019-10-31 08:39] VITALS: BP 130/85
[2019-10-31] MEDS ORDERED: SERTRALINE HCL 100 MG TABLET PO SCH (09:00)
[2019-10-31] MEDS ORDERED: OLAN10TA3 PO (09:43)
== END 2019-10-31 13:15 | disposition home or self-care (01) | DRG 885 ==
LOC: EMS 16:33 → B3A 18:50
PROVIDERS: ADMIT Psychiatry & Neurology Psychiatry; ATTEND Psychiatry & Neurology Psychiatry
DX: F25.9 Schizoaffective disorder, unspecified (principal); F32.9 Major depressive disorder, single episode, unspecified; E78.5 Hyperlipidemia, unspecified; E03.9 Hypothyroidism, unspecified; I10 Essential (primary) hypertension; Z91.19 Patient's noncompliance with other medical treatment and regimen
CPT/HCPCS: 83036; 84439; 84443; 86592; G0480

== ENCOUNTER → 2020-06-10 | Outpatient (CLI) | payer MEDICAID ==
[~2020-06-10] MED LIST changes: -ATOR10TA84 PO; +ATOR20TA86 PO; +OLAN10TA22 PO; +OLAN10TA3 PO; -QUET50TA PO; +SERT-162 PO; +SERT-440 PO; -SERT100T12 PO
[2020-06-10 13:26] LABS: COVID AG,FIA SOURCE NASOPHARYNGEAL
== END | disposition home or self-care (01) ==
LOC: LABPV 12:00 → EDSTATUS 16:22
PROVIDERS: ATTEND Psychiatry & Neurology Psychiatry
DX: Z20.822 Contact with and (suspected) exposure to COVID-19 (principal)
CPT/HCPCS: 87426

== ENCOUNTER 2020-07-27 05:15 | Inpatient (IN) | payer MEDICAID ==
[~2020-07-27] VITALS: Ht 175.3 cm; Wt 98.2 kg
[2020-07-27 06:47] LABS: BASOPHILS % (AUTO) 0.3 % (0.0-2.0); EOSINOPHILS % (AUTO) 1.6 % (1.0-6.0); HEMATOCRIT 44.7 % (41-53); HEMOGLOBIN 14.6 g/dL (13.5-17.5); LYMPHOCYTES # (AUTO) 1.2 K/uL (1.0-4.8); LYMPHOCYTES % (AUTO) 14.6 % (22.0-44.0); MEAN CORPUSCULAR HEMOGLOBIN 27.1 pg (26.0-34.0); MEAN CORPUSCULAR HGB CONC 32.6 G/dL (31.0-37.0); MEAN CORPUSCULAR VOLUME 83 fL (80-100); MONOCYTES # (AUTO) 0.5 K/uL (0.1-1.0); MONOCYTES % (AUTO) 6.1 % (2.0-9.0); NEUTROPHILS # (AUTO) 6.5 K/uL (1.8-7.7); NEUTROPHILS % (AUTO) 77.4 % (40.0-70.0); PLATELET COUNT (AUTO) 230 K/uL (150-450); RED BLOOD CELL COUNT(AUTO) 5.37 MIL/uL (4.50-5.90); RED CELL DISTRIBUTION WIDTH 13.8 % (11.5-14.5)
[2020-07-27 06:54] LABS: COVID AG,FIA SOURCE NASOPHARYNGEAL
[2020-07-27 06:57] LABS: ANION GAP 7 mmol/L (8-16); CALCIUM, TOTAL 9.2 mg/dL (8.8-10.5); CARBON DIOXIDE 28 mmol/L (22-29); CHLORIDE 103 mmol/L (98-107); CREATININE 1.16 mg/dL (0.60-1.30); GLOMERULAR FILTR. RATE CALC > 60 mL/min (>60); GLUCOSE,RANDOM 132 mg/dL (70-110); POTASSIUM 4.1 mmol/L (3.5-5.1); SODIUM SERUM 138 mmol/L (136-145); UREA NITROGEN, BLOOD 21 mg/dL (7-18)
[2020-07-27 07:13] LABS: ALANINE AMINOTRANSFERASE 31 U/L (12-78); ALBUMIN 3.9 g/dL (3.4-5.0); ALKALINE PHOSPHATASE 109 U/L (46-116); ASPARTATE AMINOTRANSFERASE 19 U/L (15-37); BILIRUBIN,TOTAL 1.1 mg/dL (0.1-1.0); FREE T4 (FREE THYROXINE) 0.98 ng/dL (0.76-1.46); THYROID STIMULATING HORMONE 1.18 uIU/mL (0.36-3.74); TOTAL PROTEIN, SERUM 7.8 g/dL (6.4-8.2)
[2020-07-27 08:13] LABS: AMPHET/METH SCREEN,URINE NEGATIVE (NEGATIVE); BARBITURATE SCREEN, URINE NEGATIVE (NEGATIVE); BENZODIAZEPINES SCREEN,URINE NEGATIVE (NEGATIVE); CANNABINOID SCREEN,URINE NEGATIVE (NEGATIVE); COCAINE SCREEN,URINE NEGATIVE (NEGATIVE); METHADONE SCREEN, URINE NEGATIVE (NEGATIVE); OPIATE SCREEN,URINE NEGATIVE (NEGATIVE)
[2020-07-27 08:21] LABS: PHENCYCLIDINE SCREEN,URINE NEGATIVE (NEGATIVE)
[2020-07-27] MEDS ORDERED: LOPERAMIDE HCL 2 MG CAPSULE PO PRN (10:45)
[2020-07-27] MEDS ORDERED: LORazepam 2 MG TABLET PO PRN (10:45)
[2020-07-27] MEDS ORDERED: OLANZapine 5 MG RAPDIS TABLET PO PRN (10:45)
[2020-07-27] MEDS ORDERED: GuaiFENesin/D-METHORPHAN [SUGAR-FREE] 200-20MG/10 ML SYRUP UDCUP PO PRN (10:45)
[2020-07-27] MEDS ORDERED: HydrOXYzine PAMOATE 50 MG CAPSULE PO PRN (10:45)
[2020-07-27] MEDS ORDERED: MAG HYDROX/AL HYDROX/SIMETH ES 30 ML SUSPENSION UDCUP PO PRN (10:45)
[2020-07-27] MEDS ORDERED: PROMETHAZINE HCL 25 MG TABLET PO PRN (10:45)
[2020-07-27] MEDS ORDERED: ZOLPIDEM TARTRATE 10 MG TABLET PO PRN (10:45)
[2020-07-27] MEDS ORDERED: MAGNESIUM HYDROXIDE SUSPENSION 30 ML UDCUP PO PRN (10:45)
[2020-07-27] MEDS ORDERED: ACETAMINOPHEN 325 MG TABLET PO PRN (10:45)
[2020-07-27 14:20] VITALS: BP 161/93
[2020-07-27 16:31] VITALS: BP 147/90
[2020-07-27] MEDS: THIAMINE 100 MG TABLET PO SCH (16:48)
[2020-07-27] MEDS: MELATONIN 5 MG TABLET PO SCH (20:14)
[2020-07-27] MEDS ORDERED: SERTRALINE HCL 50 MG TABLET PO SCH (21:00)
[2020-07-27] MEDS: OLANZapine 5 MG RAPDIS TABLET PO SCH (21:00)
[2020-07-28 06:50] VITALS: BP 119/84
[2020-07-28 08:14] VITALS: BP 138/86
[2020-07-28] MEDS: FOLIC ACID 1 MG TABLET PO SCH (08:55)
[2020-07-28] MEDS: THIAMINE 100 MG TABLET PO SCH ×2 (08:55→16:34)
[2020-07-28] MEDS: MULTIVITAMINS WITH MINERALS, THERAPEUTIC TABLET PO SCH (08:55)
[2020-07-28] MEDS: NALTREXONE HCL 50 MG TABLET PO SCH (08:55)
[2020-07-28] MEDS: OMEGA-3/DHA/EPA/FISH OIL 1,000 MG CAPSULE PO SCH (08:55)
[2020-07-28 16:25] VITALS: BP 134/79
[2020-07-28] MEDS: MELATONIN 5 MG TABLET PO SCH (20:29)
[2020-07-28] MEDS: ATORVASTATIN CALCIUM 20 MG TABLET PO SCH (20:38)
[2020-07-28] MEDS ORDERED: SERTRALINE HCL 100 MG TABLET PO SCH (21:00)
[2020-07-28] MEDS: OLANZapine 5 MG RAPDIS TABLET PO SCH (21:00)
[2020-07-29 00:55] VITALS: BP 127/67
[2020-07-29] MEDS: LEVOTHYROXINE SODIUM 25 MCG TABLET PO SCH (06:23)
[2020-07-29 08:21] VITALS: BP 131/80
[2020-07-29] MEDS: THIAMINE 100 MG TABLET PO SCH ×2 (08:28→16:52)
[2020-07-29] MEDS: OMEGA-3/DHA/EPA/FISH OIL 1,000 MG CAPSULE PO SCH (08:28)
[2020-07-29] MEDS: NALTREXONE HCL 50 MG TABLET PO SCH (08:28)
[2020-07-29] MEDS: FOLIC ACID 1 MG TABLET PO SCH (08:28)
[2020-07-29] MEDS: MULTIVITAMINS WITH MINERALS, THERAPEUTIC TABLET PO SCH (08:28)
[2020-07-29 16:29] VITALS: BP 128/71
[2020-07-29] MEDS: SERTRALINE HCL 100 MG TABLET PO SCH (20:43)
[2020-07-29] MEDS: MELATONIN 5 MG TABLET PO SCH (20:45)
[2020-07-29] MEDS: ATORVASTATIN CALCIUM 20 MG TABLET PO SCH (20:47)
[2020-07-29] MEDS: MIRTAZAPINE 15 MG TABLET PO SCH (20:56)
[2020-07-29] MEDS ORDERED: OLANZapine 10 MG RAPDIS TABLET PO SCH (21:00)
[2020-07-30 01:11] VITALS: BP 115/77
[2020-07-30] MEDS: LEVOTHYROXINE SODIUM 25 MCG TABLET PO SCH (06:22)
[2020-07-30 08:16] VITALS: BP 141/85
[2020-07-30] MEDS: NALTREXONE HCL 50 MG TABLET PO SCH (09:22)
[2020-07-30] MEDS: MULTIVITAMINS WITH MINERALS, THERAPEUTIC TABLET PO SCH (09:22)
[2020-07-30] MEDS: FOLIC ACID 1 MG TABLET PO SCH (09:22)
[2020-07-30] MEDS: THIAMINE 100 MG TABLET PO SCH ×2 (09:22→17:03)
[2020-07-30] MEDS: OMEGA-3/DHA/EPA/FISH OIL 1,000 MG CAPSULE PO SCH (09:22)
[2020-07-30] MEDS ORDERED: LURASIDONE HCL 20 MG TABLET PO PRN (16:15)
[2020-07-30 16:33] VITALS: BP 136/71
[2020-07-30] MEDS: LURASIDONE HCL 40 MG TABLET PO SCH (17:00)
[2020-07-30] MEDS: SERTRALINE HCL 100 MG TABLET PO SCH (20:32)
[2020-07-30] MEDS: MELATONIN 5 MG TABLET PO SCH (20:33)
[2020-07-30] MEDS: ATORVASTATIN CALCIUM 20 MG TABLET PO SCH (20:33)
[2020-07-30] MEDS: MIRTAZAPINE 15 MG TABLET PO SCH (20:33)
[2020-07-31 05:16] VITALS: BP 128/85
[2020-07-31] MEDS: LEVOTHYROXINE SODIUM 25 MCG TABLET PO SCH (06:21)
[2020-07-31 08:24] LABS: CHOL/HDL RATIO 4.4 (4.2-7.3)
[2020-07-31 08:36] LABS: HEMOGLOBIN A1C 5.7 % (3.8-5.6)
[2020-07-31 08:38] VITALS: BP 130/71
[2020-07-31] MEDS: MULTIVITAMINS WITH MINERALS, THERAPEUTIC TABLET PO SCH (08:58)
[2020-07-31] MEDS: NALTREXONE HCL 50 MG TABLET PO SCH (08:58)
[2020-07-31] MEDS: THIAMINE 100 MG TABLET PO SCH ×2 (08:58→16:48)
[2020-07-31] MEDS: FOLIC ACID 1 MG TABLET PO SCH (08:58)
[2020-07-31] MEDS: OMEGA-3/DHA/EPA/FISH OIL 1,000 MG CAPSULE PO SCH (08:58)
[2020-07-31 16:19] VITALS: BP 148/84
[2020-07-31] MEDS: LURASIDONE HCL 40 MG TABLET PO SCH (16:55)
[2020-07-31] MEDS: MELATONIN 5 MG TABLET PO SCH (20:25)
[2020-07-31] MEDS: ATORVASTATIN CALCIUM 20 MG TABLET PO SCH (20:25)
[2020-07-31] MEDS: MIRTAZAPINE 15 MG TABLET PO SCH (20:25)
[2020-07-31] MEDS: SERTRALINE HCL 100 MG TABLET PO SCH (20:25)
[2020-08-01 05:38] VITALS: BP 116/75
[2020-08-01] MEDS: LEVOTHYROXINE SODIUM 25 MCG TABLET PO SCH (06:29)
[2020-08-01 07:56] LABS: COVID AG,FIA SOURCE NASOPHARYNGEAL
[2020-08-01 08:32] VITALS: BP 126/62
[2020-08-01] MEDS: THIAMINE 100 MG TABLET PO SCH ×2 (09:09→16:36)
[2020-08-01] MEDS: FOLIC ACID 1 MG TABLET PO SCH (09:09)
[2020-08-01] MEDS: OMEGA-3/DHA/EPA/FISH OIL 1,000 MG CAPSULE PO SCH (09:09)
[2020-08-01] MEDS: NALTREXONE HCL 50 MG TABLET PO SCH (09:09)
[2020-08-01] MEDS: MULTIVITAMINS WITH MINERALS, THERAPEUTIC TABLET PO SCH (09:09)
[2020-08-01 16:21] VITALS: BP 134/76
[2020-08-01] MEDS: LURASIDONE HCL 40 MG TABLET PO SCH (16:50)
[2020-08-01] MEDS: ATORVASTATIN CALCIUM 20 MG TABLET PO SCH (20:09)
[2020-08-01] MEDS: SERTRALINE HCL 100 MG TABLET PO SCH (20:10)
[2020-08-01] MEDS: MELATONIN 5 MG TABLET PO SCH (20:10)
[2020-08-01] MEDS: MIRTAZAPINE 15 MG TABLET PO SCH (20:10)
[2020-08-02 05:53] VITALS: BP 152/75
[2020-08-02] MEDS: LEVOTHYROXINE SODIUM 25 MCG TABLET PO SCH (06:24)
[2020-08-02] MEDS: FOLIC ACID 1 MG TABLET PO SCH (08:46)
[2020-08-02] MEDS: THIAMINE 100 MG TABLET PO SCH ×2 (08:46→16:57)
[2020-08-02] MEDS: OMEGA-3/DHA/EPA/FISH OIL 1,000 MG CAPSULE PO SCH (08:46)
[2020-08-02] MEDS: MULTIVITAMINS WITH MINERALS, THERAPEUTIC TABLET PO SCH (08:46)
[2020-08-02] MEDS: NALTREXONE HCL 50 MG TABLET PO SCH (08:46)
[2020-08-02 09:26] VITALS: BP 118/64
[2020-08-02 16:36] VITALS: BP 117/72
[2020-08-02] MEDS: LURASIDONE HCL 40 MG TABLET PO SCH (17:00)
[2020-08-02] MEDS: MELATONIN 5 MG TABLET PO SCH (20:36)
[2020-08-02] MEDS: MIRTAZAPINE 15 MG TABLET PO SCH (20:37)
[2020-08-02] MEDS: SERTRALINE HCL 100 MG TABLET PO SCH (20:39)
[2020-08-02] MEDS: ATORVASTATIN CALCIUM 20 MG TABLET PO SCH (20:40)
[2020-08-03 05:33] VITALS: BP 119/73
[2020-08-03] MEDS: LEVOTHYROXINE SODIUM 25 MCG TABLET PO SCH (06:23)
[2020-08-03 08:23] VITALS: BP 141/77
[2020-08-03] MEDS: OMEGA-3/DHA/EPA/FISH OIL 1,000 MG CAPSULE PO SCH (09:55)
[2020-08-03] MEDS: FOLIC ACID 1 MG TABLET PO SCH (09:55)
[2020-08-03] MEDS: THIAMINE 100 MG TABLET PO SCH ×2 (09:56→16:31)
[2020-08-03] MEDS: MULTIVITAMINS WITH MINERALS, THERAPEUTIC TABLET PO SCH (09:56)
[2020-08-03] MEDS: NALTREXONE HCL 50 MG TABLET PO SCH (09:56)
[2020-08-03 16:39] VITALS: BP 131/68
[2020-08-03] MEDS: ATORVASTATIN CALCIUM 20 MG TABLET PO SCH (20:41)
[2020-08-03] MEDS: MIRTAZAPINE 15 MG TABLET PO SCH (20:41)
[2020-08-03] MEDS: SERTRALINE HCL 100 MG TABLET PO SCH (20:42)
[2020-08-03] MEDS: MELATONIN 5 MG TABLET PO SCH (20:42)
[2020-08-04 05:24] VITALS: BP 126/65
[2020-08-04] MEDS: LEVOTHYROXINE SODIUM 25 MCG TABLET PO SCH (06:45)
[2020-08-04] MEDS: ZIPRASIDONE HCL 20 MG CAPSULE PO SCH (06:46)
[2020-08-04 08:17] VITALS: BP 102/56
[2020-08-04] MEDS: MULTIVITAMINS WITH MINERALS, THERAPEUTIC TABLET PO SCH (08:53)
[2020-08-04] MEDS: THIAMINE 100 MG TABLET PO SCH ×2 (08:53→16:25)
[2020-08-04] MEDS: OMEGA-3/DHA/EPA/FISH OIL 1,000 MG CAPSULE PO SCH (08:53)
[2020-08-04] MEDS: NALTREXONE HCL 50 MG TABLET PO SCH (08:53)
[2020-08-04] MEDS: FOLIC ACID 1 MG TABLET PO SCH (08:53)
[2020-08-04 16:15] VITALS: BP 123/74
[2020-08-04] MEDS: MELATONIN 5 MG TABLET PO SCH (20:28)
[2020-08-04] MEDS: MIRTAZAPINE 15 MG TABLET PO SCH (20:28)
[2020-08-04] MEDS: SERTRALINE HCL 100 MG TABLET PO SCH (20:29)
[2020-08-04] MEDS: ATORVASTATIN CALCIUM 20 MG TABLET PO SCH (20:29)
[2020-08-04] MEDS ORDERED: ZIPR20CA2 PO (20:36)
[2020-08-04] MEDS ORDERED: SERT-440 PO (20:36)
[2020-08-04] MEDS ORDERED: MIRT-89 PO (20:36)
[2020-08-04] MEDS ORDERED: MELA5TAB3 PO (20:36)
[2020-08-04] MEDS ORDERED: NALT50TA PO (20:36)
[2020-08-05 06:18] VITALS: BP 133/89
[2020-08-05] MEDS: LEVOTHYROXINE SODIUM 25 MCG TABLET PO SCH (06:25)
[2020-08-05] MEDS: ZIPRASIDONE HCL 20 MG CAPSULE PO SCH (06:25)
[2020-08-05 08:35] VITALS: BP 143/96
[2020-08-05] MEDS: MULTIVITAMINS WITH MINERALS, THERAPEUTIC TABLET PO SCH (08:51)
[2020-08-05] MEDS: FOLIC ACID 1 MG TABLET PO SCH (08:51)
[2020-08-05] MEDS: NALTREXONE HCL 50 MG TABLET PO SCH (08:51)
[2020-08-05] MEDS: THIAMINE 100 MG TABLET PO SCH (08:51)
== END 2020-08-05 13:12 | disposition home or self-care (01) | DRG 750 ==
LOC: EMS 05:16 → B2S 12:13
PROVIDERS: ADMIT Psychiatry & Neurology Psychiatry; ATTEND Psychiatry & Neurology Psychiatry
DX: F25.1 Schizoaffective disorder, depressive type (principal); E03.9 Hypothyroidism, unspecified; E78.00 Pure hypercholesterolemia, unspecified; E78.5 Hyperlipidemia, unspecified; Z20.822 Contact with and (suspected) exposure to COVID-19; Z55.9 Problems related to education and literacy, unspecified; Z59.9 Problem related to housing and economic circumstances, unspecified; Z65.3 Problems related to other legal circumstances
CPT/HCPCS: 80053; 80061; 83036; 84439; 84443; 85025; 86592; 87426; 99285; A9575; G0480

== ENCOUNTER 2022-02-03 05:12 | Emergency (ER) | payer MEDICAID ==
[~2022-02-03] VITALS: Ht 175.3 cm; Wt 115.4 kg
[2022-02-03] MEDS ORDERED: SERT-162 PO (05:42)
[2022-02-03 06:05] LABS: COVID AG,FIA SOURCE NASAL SWAB
[2022-02-03 06:24] LABS: RAPID GROUP A STREP NEGATIVE (NEGATIVE)
[2022-02-03 06:30] LABS: INFLUENZA TYPE A NEGATIVE FOR TYPE A (NEGATIVE); INFLUENZA TYPE B NEGATIVE FOR TYPE B (NEGATIVE)
[2022-02-03 06:40] VITALS: BP 146/87
[2022-02-03] MEDS ORDERED: ACET-66 PO (06:44)
[2022-02-03] MEDS ORDERED: PENI500T2 PO (06:44)
[2022-02-03] MEDS ORDERED: LIDOCAINE 2% VISCOUS 15 ML SOLUTION UDCUP PO ONE (06:45)
== END 2022-02-03 06:50 | disposition home or self-care (01) ==
LOC: EMS 05:13
DX: K12.2 Cellulitis and abscess of mouth (principal); J02.9 Acute pharyngitis, unspecified; Z20.822 Contact with and (suspected) exposure to COVID-19; E03.9 Hypothyroidism, unspecified; E78.00 Pure hypercholesterolemia, unspecified; F32.9 Major depressive disorder, single episode, unspecified
CPT/HCPCS: 87430; 87804; 99283

== ENCOUNTER 2024-04-18 05:16 | Inpatient (IN) | payer BC, MEDICAID ==
[~2024-04-18] VITALS: Ht 175.3 cm; Wt 108.2 kg
[~2024-04-18 05:16] MED LIST changes: +ACET-66 PO; -ATOR20TA86 PO; -LEVO25TA9 PO; -OLAN10TA22 PO; -OLAN10TA3 PO; +PENI500T2 PO; -SERT-440 PO
[2024-04-18 06:28] LABS: BASOPHILS % (AUTO) 0.3 % (0.0-2.0); EOSINOPHILS % (AUTO) 3.8 % (1.0-6.0); HEMATOCRIT 45.9 % (41-53); LYMPHOCYTES # (AUTO) 1.6 K/uL (1.0-4.8); LYMPHOCYTES % (AUTO) 18.8 % (22.0-44.0); MEAN CORPUSCULAR HEMOGLOBIN 26.7 pg (26.0-34.0); MEAN CORPUSCULAR HGB CONC 32.8 G/dL (31.0-37.0); MEAN CORPUSCULAR VOLUME 82 fL (80-100); MONOCYTES # (AUTO) 0.6 K/uL (0.1-1.0); MONOCYTES % (AUTO) 6.8 % (2.0-9.0); NEUTROPHILS # (AUTO) 5.9 K/uL (1.8-7.7); NEUTROPHILS % (AUTO) 70.3 % (40.0-70.0); PLATELET COUNT (AUTO) 266 K/uL (150-450); RED BLOOD CELL COUNT(AUTO) 5.63 MIL/uL (4.50-5.90); RED CELL DISTRIBUTION WIDTH 14.1 % (11.5-14.5); WHITE BLOOD COUNT (AUTO) 8.3 K/uL (4.5-11.0)
[2024-04-18 06:38] LABS: ANION GAP 4 mmol/L (8-16); CALCIUM, TOTAL 9.1 mg/dL (8.8-10.5); CARBON DIOXIDE 30 mmol/L (22-29); CHLORIDE 99 mmol/L (98-107); CREATININE 1.43 mg/dL (0.60-1.30); GLOMERULAR FILTR. RATE CALC 52 mL/min (>60); GLUCOSE,RANDOM 113 mg/dL (70-110); POTASSIUM 4.3 mmol/L (3.5-5.1); SODIUM SERUM 133 mmol/L (136-145); UREA NITROGEN, BLOOD 17 mg/dL (7-18)
[2024-04-18 06:51] LABS: ALCOHOL, BLOOD (SERUM) < 3 mg/dL (0-10)
[2024-04-18 08:34] LABS: COVID AG,FIA SOURCE NASAL SWAB
[2024-04-18 09:07] LABS: SARS-COV2 (COVID) ANTIGEN,FIA Negative (Negative)
[2024-04-18] MEDS ORDERED: LORazepam 2 MG TABLET PO PRN (09:30)
[2024-04-18] MEDS ORDERED: OLANZapine 5 MG TABLET PO PRN (09:30)
[2024-04-18] MEDS ORDERED: ZOLPIDEM TARTRATE 5 MG TABLET PO PRN (09:30)
[2024-04-18 12:03] LABS: APPEARANCE,URINE CLEAR (CLEAR); BILIRUBIN,URINE NEGATIVE (NEGATIVE); COLOR,URINE LIGHT YELLOW (YELLOW); GLUCOSE, URINE (UA) NEGATIVE (NEGATIVE); KETONES,URINE NEGATIVE (NEGATIVE); LEUKOCYTE ESTERASE ,URINE NEGATIVE (NEGATIVE); NITRATE,URINE NEGATIVE (NEGATIVE); OCCULT BLOOD,URINE NEGATIVE (NEGATIVE); PH,URINE 6.5 (5.0-8.0); PH,URINE DRUG SCREEN 6.5 (5.0-8.0); PROTEIN,URINE 30-70 mg/dL (NEGATIVE); SPECIFIC GRAVITIY, URINE 1.024 (1.003-1.030); UROBILINOGEN,URINE <=1.0 mg/dL (<=1.0)
[2024-04-18 12:13] LABS: ALCOHOL, URINE DRUG SCREEN NEGATIVE (NEGATIVE); AMPHET/METH SCREEN,URINE NEGATIVE (NEGATIVE); BARBITURATE SCREEN, URINE NEGATIVE (NEGATIVE); BENZODIAZEPINES SCREEN,URINE NEGATIVE (NEGATIVE); CANNABINOID SCREEN,URINE NEGATIVE (NEGATIVE); COCAINE SCREEN,URINE NEGATIVE (NEGATIVE); METHADONE SCREEN, URINE NEGATIVE (NEGATIVE); OPIATE SCREEN,URINE NEGATIVE (NEGATIVE); PHENCYCLIDINE SCREEN,URINE NEGATIVE (NEGATIVE)
[2024-04-18 12:49] VITALS: O2SAT 96
[2024-04-18 13:37] VITALS: BP 148/84; PULSE 77; RESP 18; TEMP 97.6; O2SAT 97
[2024-04-18] MEDS ORDERED: TUBERCULIN, PURIFIED PROTEIN DERIVATIVE 5 TU/0.1 ML SYRINGE ID ONE (14:00)
[2024-04-18] MEDS ORDERED: MAGNESIUM HYDROXIDE SUSPENSION 30 ML UDCUP PO PRN (14:00)
[2024-04-18] MEDS ORDERED: GuaiFENesin/D-METHORPHAN [SUGAR-FREE] 200-20MG/10 ML SYRUP UDCUP PO PRN (14:00)
[2024-04-18] MEDS ORDERED: PROMETHAZINE HCL 25 MG TABLET PO PRN (14:00)
[2024-04-18] MEDS ORDERED: HydrOXYzine PAMOATE 50 MG CAPSULE PO PRN (14:00)
[2024-04-18] MEDS ORDERED: ACETAMINOPHEN 325 MG TABLET PO PRN (14:00)
[2024-04-18] MEDS ORDERED: LOPERAMIDE HCL 2 MG CAPSULE PO PRN (14:00)
[2024-04-18] MEDS ORDERED: MAG HYDROX/ALUMINUM HYD/SIMETH ES 30 ML SUSPENSION UDCUP PO PRN (14:00)
[2024-04-18 20:30] VITALS: BP 142/89; PULSE 98; RESP 18; TEMP 98.4; O2SAT 94
[2024-04-18] MEDS: OLANZapine 5 MG RAPDIS TABLET PO SCH (21:32)
[2024-04-18] MEDS: MELATONIN 5 MG TABLET PO SCH (21:32)
[2024-04-19 10:25] VITALS: BP 134/78; PULSE 83; RESP 17; TEMP 96.6; O2SAT 96
[2024-04-19] MEDS: SERTRALINE HCL 50 MG TABLET PO SCH (10:53)
[2024-04-19] MEDS: OMEGA-3/DHA/EPA/FISH OIL 1,000 MG CAPSULE PO SCH (10:53)
[2024-04-19] MEDS: NALTREXONE HCL 50 MG TABLET PO SCH (10:53)
[2024-04-19] MEDS: THIAMINE 100 MG TABLET PO SCH (10:53)
[2024-04-19] MEDS: MULTIVITAMINS WITH MINERALS, THERAPEUTIC TABLET PO SCH (10:53)
[2024-04-19] MEDS: FOLIC ACID 1 MG TABLET PO SCH (10:53)
[2024-04-19 16:46] LABS: HEMOGLOBIN A1C 5.6 % (3.8-5.6)
[2024-04-19 16:52] LABS: FREE T4 (FREE THYROXINE) 0.73 ng/dL (0.76-1.46); THYROID STIMULATING HORMONE 1.42 uIU/mL (0.36-3.74)
[2024-04-19 20:30] VITALS: BP 122/74; PULSE 78; RESP 19; TEMP 98; O2SAT 98
[2024-04-20 10:00] VITALS: BP 151/87; PULSE 79; RESP 16; TEMP 97.8; O2SAT 96
[2024-04-20 20:30] VITALS: BP 133/77; PULSE 86; RESP 16; TEMP 97.9; O2SAT 95
[2024-04-21 09:13] LABS: CHOL/HDL RATIO 6.1 (4.2-7.3)
[2024-04-21 10:03] VITALS: BP 145/84; PULSE 77; RESP 18; TEMP 96.9; O2SAT 96
[2024-04-21] MEDS: ATORVASTATIN CALCIUM 40 MG TABLET PO SCH (20:36)
[2024-04-21 21:01] VITALS: BP 132/73; PULSE 64; RESP 18; TEMP 97.7; O2SAT 100
[2024-04-22 10:01] VITALS: BP 133/78; PULSE 63; RESP 18; TEMP 98; O2SAT 96
[2024-04-22] MEDS: OLANZapine 10 MG RAPDIS TABLET PO SCH (21:19)
[2024-04-22 22:03] VITALS: BP 130/80; PULSE 74; RESP 18; TEMP 97.9; O2SAT 96
[2024-04-23] MEDS: ATORVASTATIN CALCIUM 40 MG TABLET PO SCH (10:22)
[2024-04-23] MEDS: SERTRALINE HCL 100 MG TABLET PO SCH (10:22)
[2024-04-23 10:36] VITALS: BP 138/77; PULSE 90; RESP 18; TEMP 97.8; O2SAT 95
[2024-04-23 20:45] VITALS: BP 141/71; PULSE 69; RESP 17; TEMP 98.2; O2SAT 95
[2024-04-24] MEDS: SERTRALINE HCL 100 MG TABLET PO SCH (08:54)
[2024-04-24 11:38] VITALS: BP 132/68; PULSE 68; RESP 18; TEMP 98.3; O2SAT 98
[2024-04-24 22:58] VITALS: BP 127/64; PULSE 78; RESP 18; TEMP 97.4; O2SAT 98
[2024-04-25] MEDS: SERTRALINE HCL 100 MG TABLET PO SCH (08:32)
[2024-04-25 10:04] VITALS: BP 124/67; PULSE 80; RESP 18; TEMP 98; O2SAT 95
[2024-04-25 21:00] VITALS: BP 125/70; PULSE 82; RESP 18; TEMP 97.5; O2SAT 98
[2024-04-26 09:12] VITALS: BP 143/76; PULSE 81; RESP 19; TEMP 98.2; O2SAT 95
[2024-04-26 21:53] VITALS: BP 140/70; PULSE 80; RESP 18; TEMP 98.5; O2SAT 97
[2024-04-27 09:46] VITALS: BP 143/81; PULSE 76; RESP 18; TEMP 97.8; O2SAT 96
[2024-04-27 21:53] VITALS: BP 127/69; PULSE 75; RESP 18; TEMP 98; O2SAT 94
[2024-04-28 09:51] VITALS: BP 136/68; PULSE 77; RESP 18; TEMP 97.6; O2SAT 95
[2024-04-28 22:27] VITALS: BP 132/87; PULSE 75; RESP 18; TEMP 98.3; O2SAT 95
[2024-04-29 08:45] VITALS: RESP 18
[2024-04-29 20:58] VITALS: BP 140/88; PULSE 67; RESP 18; TEMP 98.2; O2SAT 98
[2024-04-30 09:34] VITALS: BP 130/83; PULSE 85; RESP 18; TEMP 98.1; O2SAT 95
[2024-04-30] MEDS ORDERED: ESZOPICLONE 3 MG TABLET PO PRN (10:15)
[2024-04-30] MEDS ORDERED: GABAPENTIN 300 MG CAPSULE PO PRN (10:15)
[2024-04-30 20:05] VITALS: BP 137/79; PULSE 60; RESP 19; TEMP 98; O2SAT 97
[2024-05-01 09:17] VITALS: BP 136/76; PULSE 76; RESP 18; TEMP 97.3; O2SAT 96
[2024-05-01] MEDS ORDERED: NALT50TA33 PO (10:21)
[2024-05-01] MEDS ORDERED: MELA5TAB40 PO (10:21)
[2024-05-01] MEDS ORDERED: OMEG100033 PO (10:21)
[2024-05-01] MEDS ORDERED: OLAN10TA26 PO (10:21)
[2024-05-01] MEDS ORDERED: SERT-440 PO (10:21)
[2024-05-01] MEDS ORDERED: MULT-1303 PO (10:33)
[2024-05-01] MEDS ORDERED: ATOR40TA28 PO (10:33)
== END 2024-05-01 14:27 | disposition home or self-care (01) | DRG 750 ==
LOC: EMS 05:22 → 3EI 12:59
PROVIDERS: ADMIT Psychiatry & Neurology Psychiatry; ATTEND Psychiatry & Neurology Psychiatry
PROC: GZHZZZZ Group Psychotherapy (ICD-10-PCS; principal; 2024-04-18)
PROC: GZ56ZZZ Individual Psychotherapy, Supportive (ICD-10-PCS; 2024-04-18)
PROC: GZ58ZZZ Individual Psychotherapy, Cognitive-Behavioral (ICD-10-PCS; 2024-04-18)
DX: F25.9 Schizoaffective disorder, unspecified (principal); R45.851 Suicidal ideations; Z91.148 Patient's other noncompliance with medication regimen for other reason; F17.200 Nicotine dependence, unspecified, uncomplicated; F41.9 Anxiety disorder, unspecified; E78.00 Pure hypercholesterolemia, unspecified; Z20.822 Contact with and (suspected) exposure to COVID-19; J44.9 Chronic obstructive pulmonary disease, unspecified; Z68.35 Body mass index [BMI] 35.0-35.9, adult; E66.9 Obesity, unspecified; G89.4 Chronic pain syndrome; F43.10 Post-traumatic stress disorder, unspecified; T43.8X6A Underdosing of other psychotropic drugs, initial encounter; E03.9 Hypothyroidism, unspecified; Z91.51 Personal history of suicidal behavior; Z55.9 Problems related to education and literacy, unspecified; Z59.9 Problem related to housing and economic circumstances, unspecified; Z63.9 Problem related to primary support group, unspecified; Z65.3 Problems related to other legal circumstances; Z79.899 Other long term (current) drug therapy; Y92.89 Other specified places as the place of occurrence of the external cause
CPT/HCPCS: 80048; 80061; 80307; 81003; 83036; 84439; 84443; 85025; 86592; 99285; G0480